=== PATIENT | male | born 1960 | race Caucasian/White ===

== ENCOUNTER 2024-02-19 18:38 | Outpatient (CLI) | payer OTHER, SELFPAY | END 2024-02-19 18:39 | disposition home or self-care (01) | PROVIDERS: PCP Nurse Practitioner Family; Visit Provider Nurse Practitioner Family | DX: I10 Essential (primary) hypertension (principal); Z13.220 Encounter for screening for lipoid disorders; Z12.5 Encounter for screening for malignant neoplasm of prostate | CPT/HCPCS: 80053; 80061; 85025; G0103 ==

== ENCOUNTER 2025-01-09 15:48 | Outpatient (CLI) | payer BC, SELFPAY | END 2025-01-09 15:49 | disposition home or self-care (01) | PROVIDERS: PCP Nurse Practitioner Family; Visit Provider Nurse Practitioner Family | DX: I10 Essential (primary) hypertension (principal); Z12.5 Encounter for screening for malignant neoplasm of prostate; Z13.0 Encounter for screening for diseases of the blood and blood-forming organs and certain disorders involving the immune mechanism; Z13.6 Encounter for screening for cardiovascular disorders | CPT/HCPCS: 80053; 80061; 85025; G0103 ==

== ENCOUNTER 2025-01-14 12:45 | Outpatient (CLI) | payer BC, SELFPAY | END 2025-01-14 12:46 | disposition home or self-care (01) | LOC: WOUND 12:50 | PROVIDERS: PCP Nurse Practitioner Family; Referring Provider Nurse Practitioner Family; Visit Provider Nurse Practitioner Family | DX: I83.018 Varicose veins of right lower extremity with ulcer other part of lower leg (principal); I87.2 Venous insufficiency (chronic) (peripheral); L97.812 Non-pressure chronic ulcer of other part of right lower leg with fat layer exposed; I48.0 Paroxysmal atrial fibrillation | CPT/HCPCS: 11042; G0463 ==

== ENCOUNTER 2025-01-21 15:20 | Outpatient (CLI) | payer BC, SELFPAY | END 2025-01-21 15:21 | disposition home or self-care (01) | LOC: WOUND 15:20 | PROVIDERS: PCP Nurse Practitioner Family; Visit Provider Nurse Practitioner Family | DX: I87.2 Venous insufficiency (chronic) (peripheral) (principal); L97.812 Non-pressure chronic ulcer of other part of right lower leg with fat layer exposed; I48.0 Paroxysmal atrial fibrillation | CPT/HCPCS: 11042 ==

== ENCOUNTER 2025-01-28 15:20 | Outpatient (CLI) | payer BC, SELFPAY | END 2025-01-28 15:21 | disposition home or self-care (01) | LOC: WOUND 15:20 | PROVIDERS: PCP Nurse Practitioner Family; Visit Provider Nurse Practitioner Family | DX: I87.2 Venous insufficiency (chronic) (peripheral) (principal); L97.812 Non-pressure chronic ulcer of other part of right lower leg with fat layer exposed; I48.0 Paroxysmal atrial fibrillation | CPT/HCPCS: 11042 ==

== ENCOUNTER 2025-02-04 15:19 | Outpatient (CLI) | payer BC, SELFPAY | END 2025-02-04 15:20 | disposition home or self-care (01) | LOC: WOUND 15:19 | PROVIDERS: PCP Nurse Practitioner Family; Visit Provider Nurse Practitioner Family | DX: I87.2 Venous insufficiency (chronic) (peripheral) (principal); L97.812 Non-pressure chronic ulcer of other part of right lower leg with fat layer exposed; I48.0 Paroxysmal atrial fibrillation | CPT/HCPCS: 11042 ==